=== PATIENT | male | born 2005 | race Caucasian/White ===

== ENCOUNTER 2024-04-25 06:29 | Day surgery (SDC) | payer OTHER, SELFPAY ==
[2024-04-25] VITALS (7 sets, daily range): BP systolic 112–135; BP diastolic 45–72; BMI 25.4
[2024-04-25] MEDS: TYLENOL 1000 MG PO (11:10)
[2024-04-25] MEDS: NORMOSOL-R 1000 IV (11:11)
== END 2024-04-25 14:38 | disposition home or self-care (01) ==
LOC: SDS 06:29
PROVIDERS: ATTENDING PHYSICIAN Otolaryngology
DX: J32.4 Chronic pansinusitis (principal)
CPT/HCPCS: 31254; 31267; 31287; 88304; 88311